=== PATIENT | female | born 1990 | race African-American/Black ===

== ENCOUNTER 2017-05-25 16:38 | Emergency (ER) | payer OTHER ==
[~2017-05-25] VITALS: Ht 165.1 cm; Wt 107.0 kg
[~2017-05-25 16:38] MED LIST: MACROBID 100 M100 MG PO; PRENATAL TABLE1 EAC2 PO
--- NOTE | 2017-05-25 20:04 | ULTRASOUND REPORT ---
EXAMINATION: US , VIABILITY CLINICAL INFORMATION: 26-year-old woman with bilateral pelvic pain. LMP of 09/09/2016 with an estimated gestational age of 36 weeks, 6 days, and an estimated date of delivery of 06/16/2017. Gestational dating by ultrasound is 33 weeks and 6 days. COMPARISON: 03/01/2017 ultrasound TECHNIQUE: viability ultrasound was performed. FINDINGS: A single living intrauterine gestation is seen with a longitudinal vertex orientation. There are movements and a heart rate of 156 bpm. Amniotic fluid index is 16.5 cm. The placenta is located anteriorly. IMPRESSION: Single living intrauterine gestation in vertex longitudinal position with an anterior placenta. Normal amniotic fluid volume.
--- NOTE | 2017-05-25 20:26 | ED GI/GU/ABDOMINAL COMPLAINT ---
History of Present Illness General Chief Complaint: General Adult Stated Complaint: SENT IN BY DR SAGE FOR FLU SWAB, 37 WKS Source: patient Exam Limitations: no limitations Vital Signs & Intake/Output Vital Signs & Intake/Output Vital Signs Date Time Temp Pulse Resp B/P B/P Pulse O2 O2 Flow FiO2 Mean Ox Delivery Rate 05/25 1917 98.6 03 1640 98.6 103 18 123/79 98 Room Air Allergies Coded Allergies: tetrahydrozoline (SWELLING 10/24/16) Uncoded Allergies: INSECTS (SWELL UP FROM CONTACT WITH BUGS 03/01/17) Reconcile Medications Nitrofurantoin Monohyd/M-Cryst (Macrobid 100 MG Capsule) 100 MG CAPSULE 1 CAP PO BID UTI with food Ondansetron (Zofran Odt) 4 MG TAB.RAPDIS 1 TAB SL TID PRN NAUSEA Ondansetron (Zofran Odt) 4 MG TAB.RAPDIS 1 TAB SL TID nausea Vit No.130/Iron/FA ( Tablet) 27 MG IRON-800 MCG TABLET 1 TAB PO DAILY (Reported) Triage Note: 26 YO FEMALE SENT TO ER BY DR SAGE FOR FLU SWAB. PT IS 37 WEEKS AND HAS BEEN HAVING A "STOMACH ACHE" WITH VOMTINIG SINCE YESTERDAY. LBM WAS YESTERDAY. STATES +INCREASE IN FLUID VAGINALLY. SPOKE TO ABDULAZIZ IN [facility] WHO STATED THEY TALKED TO DR SAGE AND PT IS TO BE SEEN IN ER FOR FLU SWAB. MASK PROVIDED TO PT. Triage Nurses Notes Reviewed? yes LMP (ages 10-50): patient currently 37 weeks ? y Is pt currently ? No Onset: Abrupt Duration: day(s): (2), constant, continues in ED Timing: single episode today Quality/Severity: cramping Severity Numbers: 7 Location: generalized abdomen Radiation: no radiation Activities at Onset: none Prior Abdominal Problems: none Sexually Active: Yes No Modifying Factors: none Modifying Factors: Worsens With: vomiting. Associated Symptoms: abdominal pain, nausea/vomiting HPI: 26-year-old female currently 37 weeks presents for evaluation of nausea vomiting abdominal cramping body aches and chills. Patient states symptoms started about 2 days ago and have been persistent. She reports multiple episodes of nausea and vomiting. She states that she has abdominal cramping located diffusely in her abdomen in the bilateral lower pelvis and epigastric area. Patient states that the pain we'll change lead time depending on how her baby is lying. She states that if she feels like he is more in the right side of her there until he moves the left side. She describes a sensation of contractions however feels again no longer coming regularly. She has been able tolerate some fluids. No diarrhea. No hematemesis. No chest pain shortness of breath or lower extremity edema. No vaginal bleeding. She is feeling her baby move normally. She was sent in by Dr. Sage for a flu swab. She does report subjective signs of fever. No drug or alcohol use. No new medications. She got taking anything for her symptoms. (Volodymyr Mo) Past History Travel History Traveled to [place] past 21 day No Medical History Any Pertinent Medical History? see below for history Neurological: NONE EENT: NONE Cardiovascular: NONE Respiratory: NONE Gastrointestinal: NONE Hepatic: NONE Renal: NONE Musculoskeletal: SCOLIOSIS Psychiatric: NONE Endocrine: NONE Blood Disorders: NONE Cancer(s): NONE Surgical History Surgical History: none Psychosocial History What is your primary language Wolof Tobacco Use: Never used Family History Hx Contributory? No (Volodymyr Mo) Review of Systems Review of Systems Constitutional: Reports: chills, diaphoresis, malaise. EENTM: Reports: no symptoms. Respiratory: Reports: no symptoms. Cardiovascular: Reports: no symptoms. GI: Reports: see HPI, abdominal pain, nausea, vomiting. Genitourinary: Reports: no symptoms. Musculoskeletal: Reports: muscle pain. Skin: Reports: no symptoms. Neurological/Psychological: Reports: no symptoms. Hematologic/Endocrine: Reports: no symptoms. Immunologic/Allergic: Reports: no symptoms. All Other Systems: Reviewed and Negative (Volodymyr Mo) Physical Exam Physical Exam General Appearance: well developed/nourished, no apparent distress, alert, awake Head: atraumatic, normal appearance Eyes: Bilateral: normal appearance, PERRL, EOMI. Ears, Nose, Throat, Mouth: hearing grossly normal, moist mucous membrane Neck: normal inspection, supple, full range of motion Respiratory: normal breath sounds, chest non-tender, no respiratory distress, lungs clear Cardiovascular: regular rate/rhythm, normal peripheral pulses Peripheral Pulses: 2+ radial (R), 2+ radial (L) Gastrointestinal: normal bowel sounds, soft, no organomegaly, tenderness ( diffuse tenderness on exam) Back: normal inspection, normal range of motion, no vertebral tenderness, no CVA tenderness Extremities: normal range of motion Neurologic/Psych: no motor/sensory deficits, awake, alert, oriented x 3, normal gait, normal mood/affect Skin: intact, normal color, warm/dry Core Measures ACS in differential dx? No Sepsis Present: No Sepsis Focused Exam Completed? No (Clint STOLL,Volodymyr) Progress Differential Diagnosis: appendicitis, biliary colic, bowel obstruction, cholecystitis, gastritis, hepatitis, intrauterine , kidney stone, Denisa-Wilbur tear, ovarian cyst, ovarian torsion, pancreatitis, PID/cervicitis, peptic ulcer, PUD/GERD, SBO, threatened AB, UTI/pyelo Plan of Care: Orders Procedure Date/time Status URINALYSIS 05/25 1849 Active LIPASE 05/25 1849 Complete HUMAN BETA HCG TITRE 05/25 1849 Complete COMPREHENSIVE METABOLIC PANEL 05/25 1849 Complete CBC WITHOUT DIFFERENTIAL 05/25 1849 Complete RAPID VIRAL INFLUENZA A 05/25 1644 Complete Laboratory Tests 05/25/172118: Urine Color Pending, Urine Clarity Pending, Urine pH Pending, Ur Specific Morrill Pending, Urine Protein Pending, Urine Ketones Pending, Urine Nitrite Pending, Urine Bilirubin Pending, Urine Urobilinogen Pending, Ur Leukocyte Esterase Pending, Ur Microscopic Pending, Urine Hemoglobin Pending, Urine Glucose Pending 05/25/172011: Anion Gap 10, Estimated GFR > 60, BUN/Creatinine Ratio 11.7, Glucose 75, Calcium 9.4, Total Bilirubin 0.5, AST 18, ALT 27, Alkaline Phosphatase 143 H, Total Protein 7.1, Albumin 3.7, Globulin 3.4, Albumin/Globulin Ratio 1.1, Lipase 495 H, Beta HCG, Quant 9883.2, CBC w Diff NO MAN DIFF REQ, RBC 4.95, MCV 82.8, MCH 28.2, MCHC 34.1, RDW 14.8 H, MPV 12.3 H, Gran % 71.4, Lymphocytes % 21.1, Monocytes % 6.8, Eosinophils % 0.3, Basophils % 0.4, Absolute Granulocytes 7.4 H, Absolute Lymphocytes 2.2, Absolute Monocytes 0.7 H, Absolute Eosinophils 0, Absolute Basophils 0 Microbiology 05/25 1646 NASOPHARYN: Influenza Virus A & B Rapid Smear - COMP Patient seen and evaluated. She denies any vaginal bleeding. She is feeling her baby move. Flu swab is negative. Blood work was obtained and shows a mildly elevated lipase. Patient is able tolerate fluids here this been no vomiting she appears well. Patient repeatedly requests food to eat. Remaining blood work is unremarkable. viability ultrasound is within normal limits. She does report episodes of what feel like uterine contractions. These have gone away now. Spoke with Dr. Sage for OBSTETRICAL TECH. Patient will have a nonstress test and the child birtg her. Otherwise patient appears well she is tolerating fluids she'll be instructed to rest and plenty of fluids Tylenol Zofran as needed. Follow-up with OBSTETRICAL TECH. Discussed return precautions. Patient appears well she agrees the plan. Case discussed with Dr. Alfaro he agrees. Diagnostic Imaging: Viewed by Me: Ultrasound. Discussed w/RAD: Ultrasound. Radiology Impression: PATIENT: ELSA JARAMILLO PRESENT AGE: 26 PATIENT ACCOUNT NO: [id number] : 88 LOCATION: [facility] ORDERING PHYSICIAN: Volodymyr STOLL SERVICE DATE: 05/25/17 EXAM TYPE: US - US- VIABILITY EXAMINATION: US , VIABILITY CLINICAL INFORMATION: 26-year-old woman with bilateral pelvic pain. LMP of 09/09/2016 with an estimated gestational age of 36 weeks, 6 days, and an estimated date of delivery of 06/16/2017. Gestational dating by ultrasound is 33 weeks and 6 days. COMPARISON: 03/01/2017 ultrasound TECHNIQUE: viability ultrasound was performed. FINDINGS: A single living intrauterine gestation is seen with a longitudinal vertex orientation. There are movements and a heart rate of 156 bpm. Amniotic fluid index is 16.5 cm. The placenta is located anteriorly. IMPRESSION: Single living intrauterine gestation in vertex longitudinal position with an anterior placenta. Normal amniotic fluid volume. DICTATED BY: Amy Qiu MD DATE/TIME DICTATED:05/25/171956 MOTION PICTURES CARTOONIST: ROHAN DATE/TIME TRANSCRIBED:05/25/171956 CONFIDENTIAL, DO NOT COPY WITHOUT APPROPRIATE AUTHORIZATION. <Electronically signed in Other Vendor System> Initial ED EKG: none (Clint STOLL,Volodymyr) Departure Departure Disposition: HOME OR SELF CARE Condition: Stable Clinical Impression Primary Impression: Nausea/vomiting in Secondary Impressions: Abdominal pain during Qualifiers: Trimester: third trimester Qualified Codes: O26.893 - Other specified related conditions, third trimester; R10.9 - Unspecified abdominal pain Referrals: Jacinto CASTILLO,Phill Lafleur (PCP/Family) Chu CASTILLO,Mary Beth Clayton Additional Instructions: Make a follow-up appointment with her OBSTETRICAL TECH doctor as soon as possible. Tylenol 1000 mg every 6 hours as needed for pain. Zofran for nausea. Monitor symptoms return any concerns. Departure Forms: Customer Survey General Discharge Information Prescriptions: Current Visit Scripts Ondansetron (Zofran Odt) 1 TAB SL TID PRN NAUSEA #10 TAB Ondansetron (Zofran Odt) 1 TAB SL TID #10 TAB (Volodymyr Mo) PA/PRODUCT REPRESENTATIVE Co-Sign Statement Statement: ED Attending supervision documentation- [] I saw and evaluated the patient. I have also reviewed all the pertinent lab results and diagnostic results. I agree with the findings and the plan of care as documented in the PA's/PRODUCT REPRESENTATIVE's documentation. [x] I have reviewed the ED Record and agree with the PA's/PRODUCT REPRESENTATIVE's documentation. [] Additions or exceptions (if any) to the PAs/PRODUCT REPRESENTATIVE's note and plan are summarized below: [] (Dominic CASTILLO,Rupesh Resendez)
[2017-05-25 20:43] LABS: ABSOLUTE BASOPHIL COUNT 0 /CUMM (0.0-0.2); ABSOLUTE EOSINOPHIL COUNT 0 /CUMM (0.0-0.7); ABSOLUTE GRANULOCYTE CT 7.4 /CUMM (1.4-6.5); ABSOLUTE LYMPH COUNT 2.2 /CUMM (1.2-3.4); ABSOLUTE MONOCYTE COUNT 0.7 /CUMM (0.10-0.60); BASOPHIL % 0.4 % (0.0-2.0); EOSINOPHIL % 0.3 % (0-5); GRANULOCYTE % 71.4 % (42.2-75.2); MEAN CORPUSCULAR HGB 28.2 PG (27.0-31.0); MEAN CORPUSCULAR HGB CONC 34.1 G/DL (33.0-37.0); MEAN CORPUSCULAR VOLUME 82.8 FL (81.0-99.0); MEAN PLATELET VOLUME 12.3 FL (7.4-10.4); PLATELET COUNT 183 /CUMM (130-400); RBC DISTRIBUTION WIDTH 14.8 % (11.5-14.5); RED BLOOD CELL CT 4.95 /CUMM (4.20-5.40); WHITE BLOOD CELL COUNT 10.4 /CUMM (4.8-10.8)
[2017-05-25] MEDS ORDERED: ZOFRAN ODT4 M1 SL ×2 (21:23→21:28)
[2017-05-25 21:27] VITALS: BP 133/77
== END 2017-05-25 21:27 ==
LOC: ERH 16:38
PROVIDERS: Physician Assistant Medical
DX: O21.9 Vomiting of pregnancy, unspecified (principal); Z3A.37 37 weeks gestation of pregnancy
CPT/HCPCS: 36415; 59025; 81001; 84112; 87804; 87804-59; J3101

== ENCOUNTER 2017-05-31 12:20 | Inpatient (IN) | payer OTHER ==
[~2017-05-31] VITALS: Ht 165.1 cm; Wt 107.0 kg
[~2017-05-31 12:20] MED LIST changes: +ZOFRAN ODT4 M1 SL
--- NOTE | 2017-05-31 14:17 | History & Physical ---
General Information and HPI MD Statement: I have seen and personally examined ELSA JARAMILLO and documented this H&P. The patient is a 26 year old female at 37weeks and 5 days gestation who presented with a chief complaint of contractions. Source of Information: patient, old records Exam Limitations: no limitations History of Present Illness: Patient is a para 0 at 37w5d with complaint of contractions since 8 am. Good movement and no leakage of fluid. No vaginal bleeding noted. 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 Home Who Do You Live With? spouse Primary Language: French Smoking Status: Never Smoked ETOH Use: denies use Illicit Drug Use: denies illicit drug use Living Will? yes Power of Deputy K 9/HCP? unknown Other Social History: NA Employment History Employment Unemployed Review of Systems Review of Systems Constitutional: Denies: no symptoms. EENTM: Denies: no symptoms. Cardiovascular: Denies: no symptoms. Respiratory: Denies: no symptoms. GI: Denies: no symptoms. Genitourinary: Denies: no symptoms. Musculoskeletal: Denies: no symptoms. Skin: Denies: no symptoms. Neurological/Psychological: Denies: no symptoms. Hematologic/Endocrine: Denies: no symptoms. Immunologic/Allergic: Denies: no symptoms. All Other Systems: Reviewed and Negative Date of LMP: 09/10/16 Post Menopausal: No Date of Last Pap Smear: 11/05/16 Exam & Diagnostic Data Last 24 Hrs of Vital Signs/I&O Intake & Output 05/31 1600 05/31 0800 05/31 0000 Intake Total Output Total Balance Patient 107.048 kg Weight Obstetric Exam Wgt Gained During : 12 Pelvimetry: Gynecoid Dilation (cm): 4 Effacement (%): 90 Station: -1 Membranes: intact Fluid: Intact Fundal Height (cm): 37 Multiple Gestation? No Contractions: Every 3-5 Infant #1 - FHR Baseline: 140 Category: 1 Estimated Weight: 3300 grams Presentation: Cephalic Patient for Induction? No Diaz Score Diaz Score Response Value Cervix Position: posterior 0 Cervix Consistency: soft 2 Cervix Effacement: >80% 3 Cervix Dilation: 3-4 cm 2 Cervix Station: -1 2 Total 9 Physical Exam General Appearance Alert, Oriented X3, Cooperative, Moderate Distress Skin No Rashes, No Breakdown HEENT Atraumatic, PERRLA Neck Supple Cardiovascular Regular Rate, Normal S1, Normal S2 Lungs Clear to Auscultation, Normal Air Movement Abdomen Normal Bowel Sounds, Soft Neurological Normal Gait, Normal Speech, Strength at 5/5 X4 Ext, Normal Tone, Sensation Intact, Cranial Nerves 3-12 NL, Reflexes 2+ Extremities No Edema Vascular Pulses Symmetrical Breasts Breast appear nl Reproductive (FEMALE) Normal female genitalia Pelvic (FEMALE) Appearance Normal Labs Blood Type & Rh: A negative Antibody Screen: anti d Hct/Hgb & Platelets #1: 40.1/203 Hct/Hgb & Platelets #2: 37/194 Rubella: immune VDRL #1: negaitve VDRL #2: negaitve HbsAg: negative HIV #1: negative HIV #2 pending 1 Hr P 3 Hr PG: Patient refused Group B Strep: Positive Initial Ultrasound: Not available for review Anatomy Ultrasound: WNl per patient Ultrasound for EFW: NA Genetic Testing: Nl per patient Last 24 Hrs of Labs/[place]: Laboratory Tests 05/31/17 1347: Hemoglobin A1c Pending, CBC w Diff Pending, WBC Pending, RBC Pending, Hgb Pending, Hct Pending, MCV Pending, MCH Pending, MCHC Pending, RDW Pending, Plt Count Pending, MPV Pending Assessment/Plan Assessment/Plan: Patient is a 26 year old Para 0 at term with complicated by obesity and GBBS positive and abnormal GCT in early labor. Discussed plan for labor with patient. Discusssed pain mgmt strategies and she was consented for Nitrous and if no relief than epidural. Discussed that will do glucose evaluation as she had abnromal GCT. First random was 75. Check aic. Check FSG until delivery and Dr Solomon made aware just in case patient is unknown GDM. As with obesity than she is at risk for dystocia so to be in lithomy. CLinical weight is 3300 grams and adequate pelvis. GBBS positive. Disussed treatment for same and start on PCN 5 million and to go to 2.5 million every 4 until delivery. Didnt obtain flu nor tdap but got rhogam. Follow up studies to determine if needs same. Plan of care reviewed ad her mother and her partner are present. As Ranked By This Provider Problem List: 1. 2. Group beta Strep positive Core Measures Venous Thromboembolism VTE Risk Factors / No Mechanical VTE Prophylaxis d/t N/A MechProphylax Ordered No VTE Pharm Prophylaxis d/t NA PharmProphylax ordered
--- NOTE | 2017-05-31 15:22 | PN- OBGYN ---
Surgical Brief Attending Note Brief Attending Note: Seen and evaluated Using Nitrouse with fair control of pain. Now 5 cm/90/-1 Catagory 1 tracing. Allow spontaneous labor Recommend epidural. Continue on PCN s/p first dose.
[2017-05-31 15:44] LABS: ABSOLUTE BASOPHIL COUNT 0 /CUMM (0.0-0.2); ABSOLUTE EOSINOPHIL COUNT 0 /CUMM (0.0-0.7); ABSOLUTE GRANULOCYTE CT 11.9 /CUMM (1.4-6.5); ABSOLUTE LYMPH COUNT 1.3 /CUMM (1.2-3.4); ABSOLUTE MONOCYTE COUNT 0.9 /CUMM (0.10-0.60); BASOPHIL % 0.1 % (0.0-2.0); EOSINOPHIL % 0.3 % (0-5); MEAN CORPUSCULAR HGB CONC 32.3 G/DL (33.0-37.0); MEAN CORPUSCULAR VOLUME 83.6 FL (81.0-99.0); MEAN PLATELET VOLUME 11.9 FL (7.4-10.4); RBC DISTRIBUTION WIDTH 14.7 % (11.5-14.5); RED BLOOD CELL CT 4.91 /CUMM (4.20-5.40); WHITE BLOOD CELL COUNT 14.1 /CUMM (4.8-10.8)
[2017-05-31 15:59] LABS: GRANULOCYTE % 84.3 % (42.2-75.2); PLATELET COUNT 171 /CUMM (130-400)
--- NOTE | 2017-05-31 18:52 | PN- OBGYN ---
Surgical Brief Attending Note Brief Attending Note: Comfortable with epidural AVSS Catagory 1 tracing PCN#2 received Fingerstick 94. 8/100/-1 no molding and intact BOW Anticipate vaginal . Adequate progress and not protracted Gynecoid pelvis FSG random levels are less than 95 PCN for GBBS now s/p second dose.
--- NOTE | 2017-05-31 21:22 | PN- OBGYN ---
Surgical Brief Attending Note Brief Attending Note: Was 8 cm at 2030 Catagory 1 tracing Now lateral lip Noted with Temp 100.5 No fundal tenderness AROM clear fluid and no molding No tachycardia noted Non foul smelling fluid ID. GBBS positive and s/p two doses. As with pyrexia than broaden coverage with ampicillin and gentamicin. Still in ddx of pyrexia is epidural related fever. AROM now and if no increase in pressure than start oxytocin to increase power of contractions. Urine clear after casiano placed. Peds at delivery given fever and abnormal GCT. Shoulder precautions but clinically fetus is 3300 grams by john
--- NOTE | 2017-05-31 22:57 | PN- OBGYN ---
Surgical Brief Attending Note Brief Attending Note: Still no cervical change and lateral lip. No molding and clinically not LGA fetus. LOPEZ rotation. Catagory 1 tracing Will start oxytocin and reevaluate. Most likely hypotonic pattern despite arom If in 1-2 hours cannot affect change than needs csection. No further fevers and urine output good.
--- NOTE | 2017-06-01 00:08 | Labor & Delivery Summary ---
Delivery Summary Vaginal Delivery: Vaginal: vertex Episiotomy/Lacerations: Episiotomy/Lacerations: 2nd degree left labia minora Type: 2nd Repair: Figure of 8 x 2 Anesthesia: Epidural Placenta: Placenta: spontanteous, abnormal, nuchal cord (x_) (S), SGA placenta grossly 3 vessel Was nuchal and non reducible Anesthesia: Epidural Had Nitrous Baby's Weight: 6lb 10 oz Apgars - 1 Min: 8 Apgars - 5 Min: 9 Additional Comments: Delivered through intact perineum Restituted but was KALPANA compound hand Shoulders passed spontaenously after clamped nuchal. Cord gases sent Placenta to pathology Uterus tonic with oxytocin No need in my opinion for further antibiotics as placenta delivered and is vaginal Rectum intact
[2017-06-01] MEDS ORDERED: IBUPROFEN800 M1 PO (07:26)
[2017-06-01 08:26] LABS: ABSOLUTE BASOPHIL COUNT 0 /CUMM (0.0-0.2); ABSOLUTE EOSINOPHIL COUNT 0 /CUMM (0.0-0.7); ABSOLUTE LYMPH COUNT 1.8 /CUMM (1.2-3.4); ABSOLUTE MONOCYTE COUNT 1.3 /CUMM (0.10-0.60); BASOPHIL % 0 % (0.0-2.0); EOSINOPHIL % 0 % (0-5); GRANULOCYTE % 85.8 % (42.2-75.2); MEAN CORPUSCULAR HGB CONC 33.7 G/DL (33.0-37.0); MEAN CORPUSCULAR VOLUME 83.1 FL (81.0-99.0); MEAN PLATELET VOLUME 11.7 FL (7.4-10.4); PLATELET COUNT 167 /CUMM (130-400); RED BLOOD CELL CT 4.09 /CUMM (4.20-5.40)
[2017-06-01 09:00] LABS: HEMATOCRIT 33.9 % (37-47)
[2017-06-01 09:43] LABS: WHITE BLOOD CELL COUNT 22.2 /CUMM (4.8-10.8)
--- NOTE | 2017-06-02 09:22 | PN- Post Delivery/GYN ---
Subjective Subjective: desires discharge home Review of Systems: negative Objective Last 24 Hrs of Vital Signs/I&O vss Physical Exam: deferred Assessment/Plan Assessment/Plan s/p ppd 1 baby transferred due to hypoglycemia; pt now desires discharge home plan: discharge Problem List: 1.
== END 2017-06-01 22:45 | DRG 775 ==
LOC: CBCO 12:20 → GNO 12:38 → NUR 12:38 → GNO 12:38
PROVIDERS: Obstetrics & Gynecology
PROC: 10E0XZZ Delivery of Products of Conception, External Approach (ICD-10-PCS; principal; 2017-06-01)
PROC: 0HQ9XZZ Repair Perineum Skin, External Approach (ICD-10-PCS; principal; 2017-06-01)
DX: O70.0 First degree perineal laceration during delivery (principal); O99.814 Abnormal glucose complicating childbirth; O69.81X0 Labor and delivery complicated by cord around neck, without compression, not applicable or unspecified; O99.214 Obesity complicating childbirth; Z37.0 Single live birth; Z3A.37 37 weeks gestation of pregnancy; O99.824 Streptococcus B carrier state complicating childbirth
CPT/HCPCS: GNOP; 36415; 81001; 87086; J0131; J0290; J1580; J2405; J2790; J7120